=== PATIENT | female | born 2000 | race Caucasian/White ===

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

== ENCOUNTER 2022-12-16 18:51 | Emergency (ER) | payer MEDICAID ==
[2022-12-16] MEDS ORDERED: Sodium Chloride 0.9% 1000 ML 1,000 ML IV STA (19:41)
[2022-12-16] MEDS ORDERED: TYLENOL 325 MG PO STA (19:41)
[2022-12-16] MEDS ORDERED: TORAdol 30 mg Injection IV ONE (19:43)
[2022-12-16] MEDS ORDERED: TORAdol 30 mg Injection ONE (19:55)
[2022-12-16] MEDS ORDERED: TYLENOL 325 MG ONE (19:55)
[2022-12-16] MEDS ORDERED: Sodium Chloride 0.9% 1000 ML 1,000 ML ONE (19:56)
[2022-12-16 20:12] LABS: Absolute Neutrophil Ct (ANC) 7.92 x10^3/uL (1.4-6.9); BASOPHIL % 0.2 % (0.0-0.4); Basophil (Absolute #) 0.02 x10^3/uL (0-0.4); Eosinophil (Absolute #) 0.11 x10^3/uL (0-0.5); Hematocrit 37.3 % (35-47); IMMATURE GRAN # 0.09 x10^3u/L (0.00-0.03); IMMATURE GRAN % 0.8 % (0.00-0.4); Lymphocyte (Absolute #) 1.81 x10^3/uL (1.0-4.6); Lymphocytes % 16.8 % (24.0-44.0); Mean Cell Volume 90.3 fL (78-100); Mean Corpuscular Hemoglobin 31.5 pg (26-32); Mean Corpuscular Hgb Concent. 34.9 g/dL (32-36); Mean Platelet Volume 9.4 fL (7.5-11.0); Monocyte (Absolute #) 0.84 x10^3/uL (0.0-1.3); Monocytes % 7.8 % (0.0-12.0); Neutrophil % 73.4 % (36.0-66.0); Platelet Count 327 x10^3/uL (150-450); Red Blood Count 4.13 x10^6/uL (4.1-5.4); Red Cell Distribution Width 11.9 % (11.5-14.0); White Blood Count 10.8 x10^3/uL (4.0-10.5)
--- NOTE | 2022-12-16 20:26 | ERPHSYRPT ---
- History of Present Illness Time Seen by Provider: 12/16/22 20:20 Source: patient Exam Limitations: no limitations Patient Subjective Stated Complaint: wound check, double mastectomy revision 12/10/22 Triage Nursing Assessment: Pt ambulated into ER without diff, significant other at bedside. Pt had double mastectomy revision performed on 12/10/22 at [facility] in [place]. Pt has a hematoma to the left upper chest and pt began running a fever yesterday. Pt did call surgeon today and they informed pt to use ice pack and take Tylenol and Ibu for fever. Pt's temp is 101.5 here. Hematoma is small is significant bruising. Physician History: Patient is a 22-year-old female currently transitioning to male on testosterone postop day 6 bilateral mastectomy performed at [facility] in [place] presents to our ED for possible left chest infected hematoma. Patient has been experiencing increasing pain tenderness and now fever. Patient currently febrile at 101.5. Patient took 600 mg of ibuprofen at 4:00 and oxycodone at 2:00 this afternoon. Pain described as an ache that is localized. No radiation. Pain reproduced with movement and palpation. Pain improved somewhat at rest. Patient contacted his surgeon who advised patient to take antipyretics and apply cold pack to the involved area. Significant other at bedside. They voiced no other complaints or concerns at this time. Portions of this note were created with voice recognition technology. There may be grammatical, spelling, punctuation or sound alike errors Timing/Duration: today Severity: moderate Modifying Factors: Improves With: movement Associated Symptoms: denies symptoms Allergies/Adverse Reactions: No Known Drug Allergies Allergy (Verified 12/16/22 19:25) Home Medications: Ibuprofen [Ibu] 600 mg PO Q6H PRN PRN 12/16/22 [History] Oxycodone/APAP 5 mg/325 mg [Percocet Tablet 5/325Mg] 1 tab PO Q6H PRN PRN 12/16/22 [History] Hx Tetanus, Diphtheria Vaccination/Date Given: Yes Hx Influenza Vaccination/Date Given: No Hx Pneumococcal Vaccination/Date Given: No Travel Risk - International Travel Have you traveled outside of the country in past 3 weeks: No - Coronavirus Screening Are you exhibiting any of the following symptoms?: Yes Symptoms: Fever Close contact with a COVID-19 positive Pt in past 14-21 Days: No - Vaccine Status Have you recieved a Covid-19 vaccination: Yes 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 - Review of Systems Constitutional: No Symptoms, No Fever, No Chills Eyes: No Symptoms Ears, Nose, & Throat: No Symptoms Respiratory: No Symptoms, No Cough, No Dyspnea Cardiac: No Symptoms, No Chest Pain, No Edema, No Syncope Abdominal/Gastrointestinal: No Symptoms, No Abdominal Pain, No Nausea, No Vomiting, No Diarrhea Genitourinary Symptoms: No Symptoms, No Dysuria Musculoskeletal: No Symptoms, No Back Pain, No Neck Pain Skin: No Symptoms, No Rash Neurological: No Symptoms, No Dizziness, No Focal Weakness, No Sensory Changes Psychological: No Symptoms Endocrine: No Symptoms Hematologic/Lymphatic: No Symptoms Immunological/Allergic: No Symptoms All Other Systems: Reviewed and Negative - Past Medical History Pertinent Past Medical History: Yes Neurological History: No Pertinent History ENT History: No Pertinent History Cardiac History: No Pertinent History Respiratory History: No Pertinent History Endocrine Medical History: No Pertinent History Musculoskeletal History: No Pertinent History GI Medical History: GERD History: No Pertinent History Psycho-Social History: No Pertinent History Female Reproductive Disorders: No Pertinent History - Past Surgical History Past Surgical History: Yes Neuro Surgical History: No Pertinent History Cardiac: No Pertinent History Respiratory: No Pertinent History Gastrointestinal: No Pertinent History Genitourinary: No Pertinent History Musculoskeletal: No Pertinent History Female Surgical History: Mastectomy Other Surgical History: And double mastectomy revision - Social History Smoking Status: Former smoker Exposure to second hand smoke: No Drug Use: none Patient Lives Alone: No - Female History Hx Now: No - Nursing Vital Signs Nursing Vital Signs: Initial Vital Signs Temperature 101.5 F 12/16/22 19:10 Pulse Rate 108 H 12/16/22 19:10 Respiratory Rate 18 12/16/22 19:10 Blood Pressure 114/81 12/16/22 19:10 O2 Sat by Pulse Oximetry 97 12/16/22 19:10 Pain Scale Pain Intensity 6 - Physical Exam General Appearance: no apparent distress, alert Eye Exam: PERRL/EOMI, eyes nml inspection Ears, Nose, Throat Exam: normal ENT inspection, TMs normal, pharynx normal, moist mucous membranes Neck Exam: normal inspection, non-tender, supple, full range of motion Respiratory Exam: normal breath sounds, lungs clear, airway intact, other (Tenderness to palpation left chest. There appears to be resolving hematoma. The area is exquisitely tender. No axillary lymphadenopathy.), No respiratory distress Cardiovascular Exam: regular rate/rhythm, normal heart sounds, normal peripheral pulses Gastrointestinal/Abdomen Exam: soft, normal bowel sounds, No tenderness, No mass Back Exam: normal inspection, normal range of motion, No CVA tenderness, No vertebral tenderness Extremity Exam: normal inspection, normal range of motion, pelvis stable Neurologic Exam: alert, oriented x 3, cooperative, normal mood/affect, nml cerebellar function, nml station & gait, sensation nml, No motor deficits Skin Exam: normal color, warm, dry, No rash Lymphatic Exam: No adenopathy SpO2 Interpretation: normal SpO2: 97 O2 Delivery: Room Air - Course Nursing assessment & vital signs reviewed: Yes - CT Exams Chest CT Interpretation: Tele-radiologist Report (No comps. Left breast postsurgical changes without focal fluid collection or lymphadenopathy. Bilateral lung dependent atelectasis remaining chest negative) Ordered Tests: Active Orders 24 hr Category Date Time Status IV Insertion STAT Care 12/16/22 19:41 Active Pulse Oximetry (ED) STAT Care 12/16/22 19:41 Active CHEST WITH CONTRAST [CT] Stat Exams 12/16/22 19:44 Taken BLOOD CULTURE Stat Lab 12/16/22 18:45 Received CBC W DIFF Stat Lab 12/16/22 19:00 Completed CMP Stat Lab 12/16/22 19:00 Completed CULTURE,URINE Stat Lab 12/16/22 21:31 Received HCG QUALITATIVE, SERUM Stat Lab 12/16/22 Completed HCG QUALITATIVE, URINE Stat Lab 12/16/22 21:15 Completed Lactic Acid Stat Lab 12/16/22 19:57 Completed UA W/RFX UR CULTURE Stat Lab 12/16/22 21:31 Completed Medication Summary Generic Name Dose Route Start Last Admin Trade Name Freq PRN Reason Stop Dose Admin Nitrofurantoin Macrocrystals 100 mg 12/16/22 23:15 Nitrofurantoin Macro 100 Mg Capsule PO 12/16/22 23:16 STAT ONE Discontinued Medications Generic Name Dose Route Start Last Admin Trade Name Freq PRN Reason Stop Dose Admin Acetaminophen 975 mg 12/16/22 19:41 12/16/22 19:56 Acetaminophen 325 Mg Tablet PO 12/16/22 19:42 975 mg STAT STA Administration Acetaminophen Confirm 12/16/22 19:55 Acetaminophen 325 Mg Tablet Administered 12/16/22 19:56 Dose 975 mg .ROUTE .STK-MED ONE Sodium Chloride 1,000 mls @ 999 mls/hr 12/16/22 19:41 12/16/22 19:57 Sodium Chloride 0.9% 1000 Ml IV 12/16/22 20:41 999 mls/hr .Q1H1M STA Administration Sodium Chloride Confirm 12/16/22 19:56 Sodium Chloride 0.9% 1000 Ml Administered 12/16/22 19:57 Dose 1,000 mls @ ud .ROUTE .STK-MED ONE Ketorolac Tromethamine 30 mg 12/16/22 19:43 12/16/22 19:57 Ketorolac Tromethamine 30 Mg/Ml Inj IV 12/16/22 19:44 30 mg STAT ONE Administration Ketorolac Tromethamine Confirm 12/16/22 19:55 Ketorolac Tromethamine 30 Mg/Ml Inj Administered 12/16/22 19:56 Dose 30 mg .ROUTE .STK-MED ONE Lab/Rad Data: Laboratory Result Diagrams 12/16/22 19:00 12/16/22 19:00 Laboratory Results 12/16/22 12/16/22 12/16/22 Range/Units Unknown 21:31 21:15 WBC (4.0-10.5) x10^3/uL RBC (4.1-5.4) x10^6/uL Hgb (12.0-16.0) g/dL Hct (35-47) % MCV (78-100) fL MCH (26-32) pg MCHC (32-36) g/dL RDW (11.5-14.0) % Plt Count (150-450) x10^3/uL MPV (7.5-11.0) fL Gran % (36.0-66.0) % Immature Gran % (Auto) (0.00-0.4) % Nucleat RBC Rel Count (0.00-0.1) % Eos # (Auto) (0-0.5) x10^3/uL Immature Gran # (Auto) (0.00-0.03) x10^3u/L Absolute Lymphs (auto) (1.0-4.6) x10^3/uL Absolute Monos (auto) (0.0-1.3) x10^3/uL Absolute Nucleated RBC (0.00-0.01) x10^3u/L Lymphocytes % (24.0-44.0) % Monocytes % (0.0-12.0) % Eosinophils % (0.00-5.0) % Basophils % (0.0-0.4) % Absolute Granulocytes (1.4-6.9) x10^3/uL Basophils # (0-0.4) x10^3/uL Sodium (137-145) mmol/L Potassium (3.5-5.1) mmol/L Chloride (98-107) mmol/L Carbon Dioxide (22-30) mmol/L Anion Gap (5-15) MEQ/L BUN (7-17) mg/dL Creatinine (0.52-1.04) mg/dL Estimated GFR ML/MIN Glucose (74-106) mg/dL Lactic Acid (0.4-2.0) Calcium (8.4-10.2) mg/dL Total Bilirubin (0.2-1.3) mg/dL AST (14-36) U/L ALT (0-35) U/L Alkaline Phosphatase (38-126) U/L Serum Total Protein (6.3-8.2) g/dL Albumin (3.5-5.0) g/dL Serum HCG, Qual NEGATIVE (NEGATIVE) Urine Color Yellow (Yellow) Urine Appearance Clear (Clear) Urine pH 6.5 (4.6-8.0) Ur Specific [place] >=1.030 A (1.005-1.030) Urine Protein Negative (Negative) Urine Glucose (UA) Negative (Negative) mg/dL Urine Ketones Negative (Negative) Urine Blood Negative (Negative) Urine Nitrite Negative (Negative) Urine Bilirubin Negative (Negative) Urine Urobilinogen 1.0 A (0.2) mg/dL Ur Leukocyte Esterase Moderate A (Negative) U Hyaline Cast (Auto) NONE SEEN (0-2) /LPF Urine Microscopic RBC 0-2 (0-5) /HPF Urine Microscopic WBC 11-20 A (0-5) /HPF Ur Epithelial Cells None Seen (None Seen) /HPF Urine Bacteria None Seen (None Seen) /HPF Urine Culture Reflexed YES (NO) Urine HCG, Qual NEGATIVE (NEGATIVE) Influenza Type A Ag (NEGATIVE) Influenza Type B Ag (NEGATIVE) RSV (PCR) (NEGATIVE) SARS-CoV-2 (PCR) (NEGATIVE) 12/16/22 12/16/22 12/16/22 Range/Units 19:57 19:00 19:00 WBC (4.0-10.5) x10^3/uL RBC (4.1-5.4) x10^6/uL Hgb (12.0-16.0) g/dL Hct (35-47) % MCV (78-100) fL MCH (26-32) pg MCHC (32-36) g/dL RDW (11.5-14.0) % Plt Count (150-450) x10^3/uL MPV (7.5-11.0) fL Gran % (36.0-66.0) % Immature Gran % (Auto) (0.00-0.4) % Nucleat RBC Rel Count (0.00-0.1) % Eos # (Auto) (0-0.5) x10^3/uL Immature Gran # (Auto) (0.00-0.03) x10^3u/L Absolute Lymphs (auto) (1.0-4.6) x10^3/uL Absolute Monos (auto) (0.0-1.3) x10^3/uL Absolute Nucleated RBC (0.00-0.01) x10^3u/L Lymphocytes % (24.0-44.0) % Monocytes % (0.0-12.0) % Eosinophils % (0.00-5.0) % Basophils % (0.0-0.4) % Absolute Granulocytes (1.4-6.9) x10^3/uL Basophils # (0-0.4) x10^3/uL Sodium 138 (137-145) mmol/L Potassium 4.0 (3.5-5.1) mmol/L Chloride 100 (98-107) mmol/L Carbon Dioxide 27 (22-30) mmol/L Anion Gap 15.1 H (5-15) MEQ/L BUN 11 (7-17) mg/dL Creatinine 0.69 (0.52-1.04) mg/dL Estimated GFR > 60.0 ML/MIN Glucose 103 (74-106) mg/dL Lactic Acid 0.9 (0.4-2.0) Calcium 9.0 (8.4-10.2) mg/dL Total Bilirubin 1.40 H (0.2-1.3) mg/dL AST 29 (14-36) U/L ALT 22 (0-35) U/L Alkaline Phosphatase 61 (38-126) U/L Serum Total Protein 8.4 H (6.3-8.2) g/dL Albumin 4.4 (3.5-5.0) g/dL Serum HCG, Qual (NEGATIVE) Urine Color (Yellow) Urine Appearance (Clear) Urine pH (4.6-8.0) Ur Specific [place] (1.005-1.030) Urine Protein (Negative) Urine Glucose (UA) (Negative) mg/dL Urine Ketones (Negative) Urine Blood (Negative) Urine Nitrite (Negative) Urine Bilirubin (Negative) Urine Urobilinogen (0.2) mg/dL Ur Leukocyte Esterase (Negative) U Hyaline Cast (Auto) (0-2) /LPF Urine Microscopic RBC (0-5) /HPF Urine Microscopic WBC (0-5) /HPF Ur Epithelial Cells (None Seen) /HPF Urine Bacteria (None Seen) /HPF Urine Culture Reflexed (NO) Urine HCG, Qual (NEGATIVE) Influenza Type A Ag NEGATIVE (NEGATIVE) Influenza Type B Ag NEGATIVE (NEGATIVE) RSV (PCR) NEGATIVE (NEGATIVE) SARS-CoV-2 (PCR) NEGATIVE (NEGATIVE) 12/16/22 Range/Units 19:00 WBC 10.8 H (4.0-10.5) x10^3/uL RBC 4.13 (4.1-5.4) x10^6/uL Hgb 13.0 (12.0-16.0) g/dL Hct 37.3 (35-47) % MCV 90.3 (78-100) fL MCH 31.5 (26-32) pg MCHC 34.9 (32-36) g/dL RDW 11.9 (11.5-14.0) % Plt Count 327 (150-450) x10^3/uL MPV 9.4 (7.5-11.0) fL Gran % 73.4 H (36.0-66.0) % Immature Gran % (Auto) 0.8 H (0.00-0.4) % Nucleat RBC Rel Count 0.0 (0.00-0.1) % Eos # (Auto) 0.11 (0-0.5) x10^3/uL Immature Gran # (Auto) 0.09 H (0.00-0.03) x10^3u/L Absolute Lymphs (auto) 1.81 (1.0-4.6) x10^3/uL Absolute Monos (auto) 0.84 (0.0-1.3) x10^3/uL Absolute Nucleated RBC 0.00 (0.00-0.01) x10^3u/L Lymphocytes % 16.8 L (24.0-44.0) % Monocytes % 7.8 (0.0-12.0) % Eosinophils % 1.0 (0.00-5.0) % Basophils % 0.2 (0.0-0.4) % Absolute Granulocytes 7.92 H (1.4-6.9) x10^3/uL Basophils # 0.02 (0-0.4) x10^3/uL Sodium (137-145) mmol/L Potassium (3.5-5.1) mmol/L Chloride (98-107) mmol/L Carbon Dioxide (22-30) mmol/L Anion Gap (5-15) MEQ/L BUN (7-17) mg/dL Creatinine (0.52-1.04) mg/dL Estimated GFR ML/MIN Glucose (74-106) mg/dL Lactic Acid (0.4-2.0) Calcium (8.4-10.2) mg/dL Total Bilirubin (0.2-1.3) mg/dL AST (14-36) U/L ALT (0-35) U/L Alkaline Phosphatase (38-126) U/L Serum Total Protein (6.3-8.2) g/dL Albumin (3.5-5.0) g/dL Serum HCG, Qual (NEGATIVE) Urine Color (Yellow) Urine Appearance (Clear) Urine pH (4.6-8.0) Ur Specific [place] (1.005-1.030) Urine Protein (Negative) Urine Glucose (UA) (Negative) mg/dL Urine Ketones (Negative) Urine Blood (Negative) Urine Nitrite (Negative) Urine Bilirubin (Negative) Urine Urobilinogen (0.2) mg/dL Ur Leukocyte Esterase (Negative) U Hyaline Cast (Auto) (0-2) /LPF Urine Microscopic RBC (0-5) /HPF Urine Microscopic WBC (0-5) /HPF Ur Epithelial Cells (None Seen) /HPF Urine Bacteria (None Seen) /HPF Urine Culture Reflexed (NO) Urine HCG, Qual (NEGATIVE) Influenza Type A Ag (NEGATIVE) Influenza Type B Ag (NEGATIVE) RSV (PCR) (NEGATIVE) SARS-CoV-2 (PCR) (NEGATIVE) - Progress Progress: improved Progress Note: Patient is a 22-year-old female presents to our emergency department for evaluation of fever and left breast mastectomy postsurgical pain. Patient had a bilateral mastectomy procedure done approximately 1 week ago. Physical exam reveals pain and swelling to the left breast. No signs of cellulitis or obvious infection. Infectious work-up revealed a slight leukocytosis. CMP nonremarkable. Lactic acid negative. Blood cultures obtained results pending. Urinalysis reveals urinary tract infection. COVID testing negative patient received p.o. Macrobid. A prescription for the same was forwarded to patient's pharmacy. Patient has home pain medications. CT chest performed to assess for possible abscess. No abscess observed on CAT scan. No fluid collections no lymphadenopathy. Essentially nonremarkable in light of patient's recent bilateral mastectomy. Will discharge home. Fever defervesced. Complexity of problem addressed is moderate acute complicated with systemic manifestations. No critical care time Complex of data reviewed and analyzed is moderate. Dr. Barkley independently reviewed and analyzed laboratory work-up including CT report. Clinical correlation between laboratory work-up imaging study and physical exam completed. Patient's fever is likely resulting from urinary tract infection. Risk of complication and or risk of morbidity/mortality of patient management is moderate. Prescription for Macrobid forwarded to patient's pharmacy. We will discharge home. Patient agrees to follow-up with her primary care doctor within 48 hours. No social determinants of health present to impede f ollow-up. Time spent to discharge patient approximately 15 minutes. Patient reassessed. She is resting comfortably. Patient states she is ready for discharge. Vital stable. Fever defervesced. Diagnosis is fever urinary tract infection 12/16/22 23:20 Counseled pt/family regarding: lab results, diagnosis, need for follow-up, rad results - Departure Departure Disposition: Home Clinical Impression: UTI (urinary tract infection), Fever Condition: Stable Critical Care Time: No Referrals: LOTUS PAREDES [Primary Care Provider] - Follow up/PCP as directed Prescriptions: Nitrofurantoin Macro 100 mg [Macrobid 100MG Capsule] 100 mg PO BID 7 Days #14 cap
[2022-12-16 20:28] LABS: ALBUMIN 4.4 g/dL (3.5-5.0); ALKALINE PHOSPHATASE 61 U/L (38-126); ANION GAP 15.1 MEQ/L (5-15); BLOOD UREA NITROGEN 11 mg/dL (7-17); CHLORIDE 100 mmol/L (98-107); Carbon Dioxide 27 mmol/L (22-30); Creatinine 1 0.69 mg/dL (0.52-1.04); EST GLOMERULAR FILTRATION RATE > 60.0 ML/MIN; Glucose 103 mg/dL (74-106); SGOT/AST 29 U/L (14-36); SGPT/ALT 22 U/L (0-35); SODIUM 138 mmol/L (137-145); Total Protein 8.4 g/dL (6.3-8.2)
[2022-12-16 20:32] LABS: HCG SERUM TEST NEGATIVE (NEGATIVE)
[2022-12-16 20:48] LABS: INFLUENZA A NEGATIVE (NEGATIVE); INFLUENZA B NEGATIVE (NEGATIVE); RESPIRATORY SYNCTIAL VIRUS NEGATIVE (NEGATIVE); SARS-CoV-2 Xpert Express NEGATIVE (NEGATIVE)
[2022-12-16 21:39] LABS: HCG URINE TEST NEGATIVE (NEGATIVE)
[2022-12-16 21:42] LABS: ADD URINE CULTURE? YES (NO); Appearance Clear (Clear); Bacteria None Seen /HPF (None Seen); Bilirubin Negative (Negative); Blood Negative (Negative); Epithelial Cells None Seen /HPF (None Seen); Glucose, Urine Negative (Negative); Hyaline Casts NONE SEEN /LPF (0-2); Ketones Negative (Negative); Leukocyte Esterase Moderate (Negative); Nitrite Negative (Negative); Ph 6.5 (4.6-8.0); Protein,Urine Dip Negative (Negative); RBC 0-2 /HPF (0-5); Specific Gravity >=1.030 (1.005-1.030)
[2022-12-16 22:33] VITALS: O2SAT 97
[2022-12-16] MEDS ORDERED: Macrobid 100MG Capsule ONE (23:14)
[2022-12-16] MEDS ORDERED: Macrobid 100MG Capsule PO ONE (23:15)
[2022-12-16 23:30] VITALS: BP 101/66; PULSE 85
--- NOTE | 2022-12-17 09:04 | XRAY ---
Indication: Status post bilateral mastectomy. Left breast hematoma. Fever. Multiple contiguous axial images obtained through the chest using 80 cc Isovue 370 contrast. Comparison: None Bilateral mastectomy. Left anterior chest wall demonstrates multifocal subcutaneous soft tissue like densities presumed postoperative, probable hematomas. No walled off fluid collection, subcutaneous emphysema, or axillary lymphadenopathy. Lungs demonstrate mild bilateral dependent atelectasis. No suspicious pulmonary mass, infiltrate, effusion, or pneumothorax. Heart not enlarged. Aorta is normal in course and caliber. No pathologic mediastinal/hilar lymphadenopathy. Bony thorax intact. Limited upper abdomen including adrenal glands are unremarkable. Impression: 1. Status post bilateral mastectomy. Presumed left anterior chest wall postoperative changes/hematomas. No suspicious walled off fluid collection, abscess, or pathologic lymphadenopathy. 2. Remaining CT chest with contrast exam is negative.
== END 2022-12-16 23:28 | disposition home or self-care (01) ==
LOC: ED 18:51
DX: N39.0 Urinary tract infection, site not specified (principal); R50.9 Fever, unspecified; G89.18 Other acute postprocedural pain; Z79.891 Long term (current) use of opiate analgesic; Z79.899 Other long term (current) drug therapy
CPT/HCPCS: 0241U; 36000; 36415; 71260; 80053; 81001; 81025; 83605; 84703; 85025; 87040; 87086; 96374; 99284; J1885; A9270-GY